=== PATIENT | female | born 1985 | race Caucasian/White ===

== ENCOUNTER → 2018-06-22 | Outpatient (CLI) | payer OTHER ==
[2018-06-22 13:35] LABS: HCG, SERUM QUANTITATIVE < 1.0 MIU/ML
[2018-06-22 13:44] LABS: APPEARANCE, URINE CLEAR (CLEAR); BACTERIA, URINE AUTO NEGATIVE (NEGATIVE); BILIRUBIN, URINE AUTO NEGATIVE (NEGATIVE); BLOOD, URINE BLOOD NEGATIVE (NEGATIVE); COLOR, URINE YELLOW (YELLOW); GLUCOSE, URINE (UA) AUTO NEGATIVE (NEGATIVE); KETONE, URINE AUTO NEGATIVE (NEGATIVE); LEUKOCYTE ESTERASE, URINE AUTO NEGATIVE (NEGATIVE); MUCUS, URINE SMALL (NEGATIVE); NITRITE, URINE AUTO NEGATIVE (NEGATIVE); PROTEIN, URINE AUTO NEGATIVE (NEGATIVE); RBC, URINE AUTO 1 /HPF (0-3); SPECIFIC GRAVITY URINE AUTO 1.013 (1.002-1.035); SQUAMOUS EPITHELIAL CELL UR AU 0 /HPF (0-6); UROBILINOGEN, URINE AUTO 0.2 mg/dL (0.0-2.0); WBC, URINE AUTO 0 /HPF (0-3)
== END ==
LOC: M SMT 10:10
DX: N92.6 Irregular menstruation, unspecified (principal); R31.0 Gross hematuria
CPT/HCPCS: 84702

== ENCOUNTER → 2018-06-29 | Outpatient (CLI) | payer OTHER ==
[~2018-06-29] MED LIST: ISOVUE-370 76% 100ML VIAL (Q9967) As Ordered
== END ==
LOC: M RAD 14:38
DX: R31.0 Gross hematuria (principal); Z98.84 Bariatric surgery status; Z90.49 Acquired absence of other specified parts of digestive tract
CPT/HCPCS: Q9967

== ENCOUNTER 2020-01-24 07:10 | Outpatient (CLI) | payer OTHER ==
[~2020-01-24] VITALS: Ht 162.6 cm; Wt 84.8 kg
[~2020-01-24 07:10] MED LIST changes: +ASCO250T20 PO; +B-122500 PO; +D3 S20002 PO; +FERR32TA PO; -ISOVUE-370 76% 100ML VIAL (Q9967) As Ordered; +MULTTAB20 PO; +PANT40TA29 PO
[2020-01-24 07:25] VITALS: BP 117/64
[2020-01-24] MEDS ORDERED: IRON SUCROSE 200 MG in NS 100 ML OVER 1 HR IV ONE (07:30)
[2020-01-24] MEDS ORDERED: MULTCAP PO (07:37)
[2020-01-24 08:08] VITALS: BP 107/57
[2020-01-24 09:00] VITALS: BP 108/56
== END 2020-01-24 09:00 | disposition home or self-care (01) ==
LOC: M INFU 07:10
PROVIDERS: ATTEND Specialist
DX: D50.9 Iron deficiency anemia, unspecified (principal)
CPT/HCPCS: 96365; J1756